=== PATIENT | female | born 2000 | race Caucasian/White ===

== ENCOUNTER → 2022-10-20 | Outpatient (CLI) | payer MEDICAID, OTHER ==
--- NOTE | 2022-10-20 18:51 | Diagnostic Imaging Report ---
INDICATION: Supervision of normal . Anatomy scan. TECHNIQUE: Multiple real-time grayscale images were obtained over the gravid uterus. COMPARISON: None. FINDINGS: A single live intrauterine gestation is visualized in cephalic presentation. The placenta is posterior and not low lying. heart tones measure 143 BPM. The amniotic fluid visually appears normal, although no dedicated measurements were performed by the central office frame wirer. The cervix is closed and measures 4.3 cm in length. The kidneys, urinary bladder, stomach, brain, four-chamber heart, three-vessel cord, spine, and cord insertion are visualized and have a normal appearance. Views of the adnexa are unremarkable. Biometrical measurements are as follows: Biparietal 4.46 cm, age 19 weeks 4 days. Head circumference 16.67 cm, age 19 weeks 3 days. Abdominal circumference 14.15 cm, age 19 weeks 4 days. Femur length 3.05 cm, age 19 weeks 4 days. Sonographic estimate age: 19 weeks 4 days. Sonographic estimated date of delivery: 03/12/2023. Estimated Weight: 294 gm (+/- 43 gm). LMP percentile: 25%. heart rate: 143 beats per minute. number: 1 of 1. IMPRESSION: 1. Single live intrauterine gestation measuring 19 weeks 4 days with an estimated due date of 03/12/2023. These are within range of the clinical dates. 2. Unremarkable anatomy scan. No abnormalities are identified. Dictated by: Dictated on workstation # [id number]
== END ==
LOC: RAD 09:50
PROVIDERS: ATTEND Nurse Practitioner Women's Health
DX: Z34.02 Encounter for supervision of normal first pregnancy, second trimester (principal); Z3A.19 19 weeks gestation of pregnancy
CPT/HCPCS: 76805

== ENCOUNTER 2023-03-04 15:38 | Outpatient (CLI) | payer MEDICAID ==
[~2023-03-04] VITALS: Ht 154.9 cm; Wt 77.0 kg
[2023-03-04 15:40] VITALS: BP 107/68
[2023-03-04 16:09] LABS: COLOR,URINE YELLOW
[2023-03-04 16:10] VITALS: BP 108/68
[2023-03-04 16:10] LABS: BILIRUBIN,URINE NEGATIVE (NEGATIVE); CLARITY,URINE CLEAR; GLUCOSE, URINE (UA) NEGATIVE (NEGATIVE); KETONES,URINE NEGATIVE (NEGATIVE); LEUKOCYTE ESTERASE ,URINE NEGATIVE (NEGATIVE); NITRITE,URINE NEGATIVE (NEGATIVE); PH,URINE 7.5 (5-9); PROTEIN,URINE NEGATIVE (NEGATIVE)
[2023-03-04 16:11] LABS: BACTERIA,URINE MODERATE /HPF; SQUAMOUS EPITHELIAL CELL,UR 0-2 /HPF; WBC,URINE 0-2 /HPF
[2023-03-04] MEDS ORDERED: PREN1TAB19 PO (17:47)
--- NOTE | 2023-03-07 08:58 | Physician Query-Final Dx ---
Clinic Account Progress/Dx Physician Query: Please give diagnosis Please include # weeks gestation Date of Service Mar 04, 2023 at 15:38 ANTONIA,MayMar 07, 2023 08:58
== END 2023-03-04 18:18 | disposition home or self-care (01) ==
LOC: WSo 15:38
PROVIDERS: ATTEND Obstetrics & Gynecology
DX: O47.9 False labor, unspecified (principal); Z3A.00 Weeks of gestation of pregnancy not specified
CPT/HCPCS: 81000

== ENCOUNTER 2023-03-09 22:57 | Outpatient (CLI) | payer MEDICAID ==
[~2023-03-09] VITALS: Ht 155 cm; Wt 77.4 kg
[~2023-03-09 22:57] MED LIST: PREN1TAB19 PO
[2023-03-09 23:20] VITALS: BP 113/65
[2023-03-09 23:47] LABS: CLARITY,URINE CLEAR; COLOR,URINE YELLOW; PH,URINE 6.5 (5-9)
[2023-03-09 23:48] LABS: BACTERIA,URINE LARGE /HPF; BILIRUBIN,URINE NEGATIVE (NEGATIVE); GLUCOSE, URINE (UA) NEGATIVE (NEGATIVE); KETONES,URINE NEGATIVE (NEGATIVE); LEUKOCYTE ESTERASE ,URINE NEGATIVE (NEGATIVE); NITRITE,URINE POSITIVE (NEGATIVE); PROTEIN,URINE NEGATIVE (NEGATIVE); SQUAMOUS EPITHELIAL CELL,UR >50 /HPF
[2023-03-10] MEDS ORDERED: CEPH500T PO (00:29)
[2023-03-10 00:48] VITALS: BP 122/70
--- NOTE | 2023-03-10 08:06 | Physician Query-Final Dx ---
ANTONIA,03/10/23 0806: Clinic Account Progress/Dx Physician Query: Please give diagnosis Please include # weeks gestation Date of Service Mar 09, 2023 at 22:57 ADAM RICHARDS DO 03/11/23 0715: Clinic Account Progress/Dx DIAGNOSIS: Diagnosis 22 yo G1 @ 39 weeks Irregular contractions Uncomplicated UTI ANTONIA,MayMar 10, 2023 08:06 ADAM RICHARDS DO Mar 11, 2023 07:15
== END 2023-03-10 00:48 | disposition home or self-care (01) ==
LOC: LDRP 22:57 → WSo 22:57
PROVIDERS: ATTEND Obstetrics & Gynecology
DX: O62.9 Abnormality of forces of labor, unspecified (principal); O23.43 Unspecified infection of urinary tract in pregnancy, third trimester; Z3A.39 39 weeks gestation of pregnancy
CPT/HCPCS: 81000; 87088; G0463; 99213

== ENCOUNTER 2023-03-12 18:19 | Inpatient (IN) | payer MEDICAID ==
[2023-03-12] VITALS (37 sets, daily range): BP systolic 100–172; BP diastolic 50–117
[~2023-03-12] VITALS: Ht 154.9 cm; Wt 77.5 kg
[~2023-03-12 18:19] MED LIST changes: +CEPH500T PO
[2023-03-12 18:52] LABS: BILIRUBIN,URINE NEGATIVE (NEGATIVE); CLARITY,URINE CLEAR; COLOR,URINE YELLOW; GLUCOSE, URINE (UA) NEGATIVE (NEGATIVE); KETONES,URINE NEGATIVE (NEGATIVE); NITRITE,URINE NEGATIVE (NEGATIVE); PROTEIN,URINE NEGATIVE (NEGATIVE)
[2023-03-12 18:53] LABS: BACTERIA,URINE FEW /HPF; LEUKOCYTE ESTERASE ,URINE NEGATIVE (NEGATIVE); WBC,URINE 0-2 /HPF
[2023-03-12] MEDS ORDERED: MINERAL OIL 30 ML UDC TOP PRN (19:15)
[2023-03-12] MEDS ORDERED: LACTATED RINGERS 1,000 ML 500 ML IV PRN (19:15)
[2023-03-12] MEDS ORDERED: LIDOCAINE 2% w/EPI 1:200,000 20 ML VIAL INJ PRN (19:15)
[2023-03-12] MEDS ORDERED: D5 LR 1,000 ML IV SOLN 1,000 ML IV ONE (19:36)
[2023-03-12] MEDS ORDERED: fentaNYL 2 mcg/ml BUPIVA 0.125 100 ML ONE (19:39)
[2023-03-12] MEDS ORDERED: LACTATED RINGERS 1,000 ML 1,000 ML IV ONE (19:45)
[2023-03-12 19:47] LABS: HEMATOCRIT 38 % (35-52); HEMOGLOBIN 12.9 g/dL (11.5-16.0); MEAN CORPUSCULAR HEMOGLOBIN 29 pg (25-34); MEAN CORPUSCULAR HGB CONC 34 g/dL (32-36); MEAN CORPUSCULAR VOLUME 86 fL (80-99); MEAN PLATELET VOLUME 11.4 fL (9.0-12.2); NEUTROPHILS % (AUTO) 69 % (42-75); PLATELET COUNT 162 10^3/uL (130-400); WHITE BLOOD COUNT 12.4 10^3/uL (4.3-11.0)
[2023-03-12 19:48] LABS: BASOPHILS # (AUTO) 0.1 10^3/uL (0.0-0.1); BASOPHILS % (AUTO) 0 % (0-10); EOSINOPHILS # (AUTO) 0.1 10^3/uL (0.0-0.3); EOSINOPHILS % (AUTO) 1 % (0-10); LYMPHOCYTES % (AUTO) 24 % (12-44); MONOCYTES # (AUTO) 0.6 X 10^3 (0.0-1.0); MONOCYTES % (AUTO) 5 % (0-12); NEUTROPHILS # (AUTO) 8.6 X 10^3 (1.8-7.8)
[2023-03-12] MEDS ORDERED: fentaNYL INJECTION 100 MCG/2 ML VIAL ONE (20:14)
[2023-03-12] MEDS ORDERED: LIDOCAINE PF 2% 5 ML VIAL ONE (20:14)
[2023-03-12] MEDS: D5 LR 1,000 ML IV SOLN 1,000 ML IV SCH (20:20)
[2023-03-12] MEDS: CATHETER FLUSH 10 ML SYR IV SCH (21:19)
[2023-03-13] VITALS (43 sets, daily range): BP systolic 99–146; BP diastolic 55–86
[2023-03-13] MEDS ORDERED: OXYTOCIN DRIP PRE-MIX 500 ML IV ONE (02:35)
[2023-03-13] MEDS ORDERED: fentaNYL 2 mcg/ml BUPIVA 0.125 100 ML ONE (03:00)
[2023-03-13] MEDS: D5 LR 1,000 ML IV SOLN 1,000 ML IV SCH (04:01)
--- NOTE | 2023-03-13 05:02 | History & Physical-OB ---
OB - Chief Complaint & HPI Date/Time Date of Admission: Date of Admission: Mar 12, 2023 at 18:45 Date seen by a Provider: Mar 13, 2023 Time Seen by a Provider: 04:45 Chief Complaint/History OB-Reason for Admission/Chief: Onset of Labor Hx : 1 Expected Date of Delivery: Mar 10, 2023 Gestational Age in Weeks: 40 Gestational Age in Days: 2 Admission Nurse Assessment Rev: Yes History of Labs AB+ GBS neg RI Hep B/C neg HIV neg RPR neg Other This 22yo G1 presents to L&D @ 40w3d EGA with c/o CTXs that started earlier today. She denies LOF or VB CTX Q2-3min Allergies and Home Medications Allergies Coded Allergies: No Known Drug Allergies (Unverified , 03/04/23) Patient Home Medication List Home Medication List Reviewed: Yes Cephalexin (Cephalexin) 500 Mg Tablet, 500 MG PO QID Prescribed by: LIEN ELLIOTT on 03/10/23 0042 Last Action: Reviewed Vit/Iron Fumarate/FA ( Vitamins Tablet) 28 Mg Iron-800 Mcg Tablet, 1 EACH PO DAILY, (Reported) Entered as Reported by: ISABEL VICTORIA on 03/04/23 7877 Last Action: Reviewed OB - History Hx of Present Care: Yes Ultrasounds: Normal mid trimester US Obstetrical Complications: None Medical Complications: None Information Induced Hypertension: No Maternal Gestational Diabetes: No Hemorrhage: No Obstetrical History Hx : 1 Risk Variables Obstetrical Risk Variables: Not POA Anemia, Not POA Asthma, Not POA Autoimmune Disease, Not POA Bariatric Surgery, Not POA Bleeding Disorder, Not POA BMI >= 40, Not POA Cardiac Disease, Not POA Economic Housing Instabil, Not POA G astrointestinal Disease, Not POA Gestational Diabetes, Not POA HIV, Not POA Hypertension, Not POA Fpc Anticoagulant U, Not POA Mental Health Disorder, Not POA Multiple , Not POA Neuromuscular Disease, Not POA Obstetrical VTE, Not POA Other Preeclampsia, Not POA Placenta Previa, Not POA Placental Abruption, Not POA Placenta Accreta Spectrum, Not POA Preexisting Diabetes, Not POA , Not POA Previous , Not POA Pulmonary Hypertension, Not POA Renal Disease, Not POA Severe Preeclampsia, Not POA Substance Abuse, Not POA Thyrotoxicosis Patient Past Medical History Depression Social History/Family History Alcohol Use: Denies Use Smoking Cessation: Never smoker 2nd Hand Smoke Exposure: No Immunizations Influenza Vaccine Up-to-Date: Yes; Up-to-Date OB - Admission Exam Physical Exam Vitals: Vital Signs 03/13/23 04:30 Temp 36.4 Pulse 68 Resp 18 B/P (MAP) 111/69 (83) Pulse Ox 98 O2 Delivery Room Air HEENT: NCAT Heart: Rhythm Normal Lungs: Clear Abdomen: Gravid Extremities: Normal Reflexes: Normal Cervical Dilatation: 10cm Effacement: 100% Station: +1 Membranes: Ruptured (AROM Thick meconium) Amniotic Fluid: Thick Meconium Heart Rate: 150's Accelerations: Accelerations Present Decelerations: Variable Decelerations (occasional ) [employer] Variability: Average (6-25) Contractions on Admission: < 5 Minutes Apart Intensity: Moderate Labs Laboratory Tests Test 03/12/23 18:35 03/12/23 18:57 Range/Units Urine Color YELLOW Urine Clarity CLEAR Urine pH 6.0 5-9 Urine Specific [place] 1.020 1.016-1.022 Urine Protein NEGATIVE NEGATIVE Urine Glucose (UA) NEGATIVE NEGATIVE Urine Ketones NEGATIVE NEGATIVE Urine Nitrite NEGATIVE NEGATIVE Urine Bilirubin NEGATIVE NEGATIVE Urine Urobilinogen 0.2 < = 1.0 MG/DL Urine Leukocyte Esterase NEGATIVE NEGATIVE Urine RBC (Auto) NEGATIVE NEGATIVE Urine RBC NONE /HPF Urine WBC 0-2 /HPF Urine Squamous Epithelial Cells 2-5 /HPF Urine Crystals NONE /LPF Urine Bacteria FEW H /HPF Urine Casts NONE /LPF Urine Mucus NEGATIVE /LPF Urine Culture Indicated YES White Blood Count 12.4 H 4.3-11.0 10^3/uL Red Blood Count 4.39 3.80-5.11 10^6/uL Hemoglobin 12.9 11.5-16.0 g/dL Hematocrit 38 35-52 % Mean Corpuscular Volume 86 80-99 fL Mean Corpuscular Hemoglobin 29 25-34 pg Mean Corpuscular Hemoglobin Concent 34 32-36 g/dL Red Cell Distribution Width 13.6 10.0-14.5 % Platelet Count 162 130-400 10^3/uL Mean Platelet Volume 11.4 9.0-12.2 fL Immature Granulocyte % (Auto) 1 % Neutrophils (%) (Auto) 69 42-75 % Lymphocytes (%) (Auto) 24 12-44 % Monocytes (%) (Auto) 5 0-12 % Eosinophils (%) (Auto) 1 0-10 % Basophils (%) (Auto) 0 0-10 % Neutrophils # (Auto) 8.6 H 1.8-7.8 X 10^3 Lymphocytes # (Auto) 3.0 1.0-4.0 X 10^3 Monocytes # (Auto) 0.6 0.0-1.0 X 10^3 Eosinophils # (Auto) 0.1 0.0-0.3 10^3/uL Basophils # (Auto) 0.1 0.0-0.1 10^3/uL Immature Granulocyte # (Auto) 0.1 0.0-0.1 10^3/uL Syphilis Total Antibody Negative Negative OB - Assessment/Plan/Diagnosis Assessment Assessment: active labor Admission Dx IUP @ 40w3d Admit for labor Admission Status: Inpatient Order (span 2 midnights) Reason for Inpatient Admission: IUP @ 40w3d Admit for labor Plan Plan: Expectant Management RACHELLE MERIDA DO Mar 13, 2023 05:02
[2023-03-13] MEDS ORDERED: MEASLES, MUMPS, RUBELLA VACCINE (MMR) SQ ONE (05:45)
[2023-03-13] MEDS ORDERED: WITCH HAZEL(TUCKS) 40 EA JAR TOP PRN (05:45)
[2023-03-13] MEDS ORDERED: OXYTOCIN DRIP PRE-MIX 500 ML IV SCH (05:45)
[2023-03-13] MEDS ORDERED: METHYLERGONOVINE INJ 0.2 MG/ML AMP IM PRN (05:45)
[2023-03-13] MEDS ORDERED: Tetanus/Diphtheria/Pertussis (Acell) ADULT Vaccine 0.5 ML IM ONE (05:45)
[2023-03-13] MEDS ORDERED: DIBUCAINE 1% OINTMENT 28 GM TUBE TOP PRN (05:45)
[2023-03-13] MEDS ORDERED: NALOXONE 0.4 MG/ML 1 ML VIAL IV PRN (05:45)
[2023-03-13] MEDS ORDERED: BENZOCAINE/MENTHOL (DERMOPLAST) 56 ML CAN TP PRN (05:45)
[2023-03-13] MEDS ORDERED: METHYLERGONOVINE INJ 0.2 MG/ML AMP IM ONE ×2 (05:46→13:05)
--- NOTE | 2023-03-13 05:53 | OB Labor & Delivery Record ---
Vag Delivery Note Vag Delivery Note Date of Delivery: 03/13/23 Preoperative Diagnosis: Janis Mendoza 22-year-old G1 at 40 weeks 3 days with active labor Postoperative Diagnosis: Same Attending Surgeon/Physician: Karina Merida DO Resident Physician: [] Assistant [employer]: [] Anesthesia: Epidural Delivery Type: Spontaneous vaginal delivery Findings: [] Liveborn female at 05 23 on 03/13/2023 with Apgars of 9/9 and weight pending Lacerations: None Intact placenta with 3 vessel cord. No nuchal cord, body cord or shoulder dystocia Estimated Blood Loss: 350ml Complications: None Condition: Stable Description of Procedure: Patient was complete and then pushed for approximately 30 minutes delivered the head in a straightaway position. The mouth and nose were bulb suction. The posterior shoulder (left) delivered followed by the anterior shoulder followed by the rest the . The was placed on maternal abdomen and after 60 seconds of delayed cord clamping the cord was then clamped and then cut by the father. The placenta delivered spontaneously intact with three-vessel cord. The cervix, vagina, periurethral and perineal areas were all inspected. There were no lacerations. Uterus was a bit boggy and EBL was at 200 at that time. Methergine 0.2 was given IM x1 in addition to her standard Pitocin bolus. The uterus was firm and started to slow down. The quantitative blood loss was 350 cc. All my counts were correct x2. Cord bloods had been obtained. The mother and tolerated the procedure well and a recovering in the room in stable condition. Gross pathology: Janis Mendoza is a 22-year-old G1, P0 who presented at 40 weeks 2 days EGA with complaint of contractions. She was klaus about every 2 to 3 minutes and initially her cervix was 4 cm and progressed to 5 cm. She was admitted for labor and she continued to progress until she was complete and delivered as previously described. Vitals - Labs Vital Signs - I&O Vital Signs Date Time Temp Pulse Resp B/P (MAP) Pulse Ox O2 Delivery O2 Flow Rate FiO2 03/13/23 04:30 36.4 68 18 111/69 (83) 98 Room Air 03/13/23 04:15 69 18 113/66 (82) 96 Room Air 03/13/23 04:00 77 18 127/65 (85) 99 Room Air 03/13/23 03:45 36.8 81 18 119/83 (95) 97 Room Air 03/13/23 03:30 67 18 112/77 (89) 98 Room Air 03/13/23 03:15 66 18 116/77 (90) 96 Room Air 03/13/23 03:00 70 18 128/78 (95) 97 Room Air 03/13/23 02:55 67 18 121/73 (89) 100 Room Air 03/13/23 02:50 67 18 113/72 (86) 100 Room Air 03/13/23 02:45 62 18 121/76 (91) 100 Room Air 03/13/23 02:40 65 18 122/70 (87) 100 Room Air 03/13/23 02:35 62 18 122/65 (84) 98 Room Air 03/13/23 02:30 36.7 78 97 118/77 (91) 100 Room Air 03/13/23 02:25 86 18 124/86 (99) 98 Room Air 03/13/23 02:20 66 18 116/68 (84) 97 Room Air 03/13/23 02:00 65 18 116/58 (77) 97 Room Air 03/13/23 01:45 36.6 79 97 106/56 (73) 98 Room Air 03/13/23 01:30 80 18 113/55 (74) 98 Room Air 03/13/23 01:25 80 18 128/58 (81) 98 Room Air 03/13/23 01:20 72 18 116/58 (77) 98 Room Air 03/13/23 01:15 70 18 110/62 (78) 98 Room Air 03/13/23 01:10 67 18 115/56 (75) 99 Room Air 03/13/23 01:05 71 18 115/55 (75) 99 Room Air 03/13/23 01:00 73 18 111/62 (78) 99 Room Air 03/13/23 00:45 69 18 103/59 (74) 96 Room Air 03/13/23 00:30 74 18 105/55 (72) 96 Room Air 03/13/23 00:15 75 18 106/66 (79) 97 Room Air 03/13/23 00:00 75 18 110/72 (85) 97 Room Air 03/12/23 23:45 63 18 108/67 (81) 97 Room Air 03/12/23 23:30 75 18 100/59 (73) 97 Room Air 03/12/23 23:25 66 18 111/66 (81) 97 Room Air 03/12/23 23:20 64 18 110/67 (81) 97 Room Air 03/12/23 23:15 65 18 110/57 (74) 98 Room Air 03/12/23 23:10 36.4 66 18 113/55 (74) 99 Room Air 03/12/23 23:00 70 18 108/50 (69) 98 Room Air 03/12/23 22:45 77 18 104/61 (75) 98 Room Air 03/12/23 22:30 77 18 119/62 (81) 100 Room Air 03/12/23 22:15 63 18 105/56 (72) 100 Room Air 03/12/23 22:00 36.0 70 18 105/53 (70) 99 Room Air 03/12/23 21:45 66 18 111/66 (81) 100 Room Air 03/12/23 21:30 67 18 112/56 (74) 99 Room Air 03/12/23 21:15 86 18 116/55 (75) 98 Room Air 03/12/23 21:00 83 18 109/59 (76) 99 Room Air 03/12/23 20:57 69 18 105/61 (76) 97 Room Air 03/12/23 20:54 72 18 103/56 (72) 98 Room Air 03/12/23 20:51 67 18 101/70 (80) 98 Room Air 03/12/23 20:48 71 18 104/63 (77) 97 Room Air 03/12/23 20:45 77 18 109/66 (80) 98 Room Air 03/12/23 20:42 71 18 110/70 (83) 98 Room Air 03/12/23 20:39 73 18 113/73 (86) 98 Room Air 03/12/23 20:36 75 18 112/73 (86) 98 Room Air 03/12/23 20:33 80 18 100/68 (79) 96 Room Air 03/12/23 20:30 73 18 104/76 (85) 98 Room Air 03/12/23 20:28 76 18 100/73 (82) 98 Room Air 03/12/23 20:25 88 18 172/117 (135) 97 Room Air 03/12/23 20:22 75 18 113/68 (83) 97 Room Air 03/12/23 20:19 74 20 119/76 (90) 100 Room Air 03/12/23 20:16 66 20 122/74 (90) 100 Room Air 03/12/23 20:13 82 20 119/75 (90) 99 Room Air 03/12/23 20:10 80 20 125/74 (91) 100 Room Air 03/12/23 20:07 88 20 122/83 (96) 100 Room Air 03/12/23 20:04 71 18 158/98 (118) Room Air 03/12/23 19:35 36.8 65 18 122/65 (84) Room Air 03/12/23 18:38 37.1 84 18 113/72 (86) 98 Room Air 03/12/23 18:37 37.1 74 18 98 Room Air I & O 03/13/23 07:00 Intake Total 2600 ml Balance 2600 ml Labs Laboratory Tests 03/12/23 18:35: Urine Color YELLOW, Urine Clarity CLEAR, Urine pH 6.0, Urine Specific [place] 1.020, Urine Protein NEGATIVE, Urine Glucose (UA) NEGATIVE, Urine Ketones NEGAT JONAS, Urine Nitrite NEGATIVE, Urine Bilirubin NEGATIVE, Urine Urobilinogen 0.2, Urine Leukocyte Esterase NEGATIVE, Urine RBC (Auto) NEGATIVE, Urine RBC NONE, Urine WBC 0-2, Urine Squamous Epithelial Cells 2-5, Urine Crystals NONE, Urine Bacteria FEWH, Urine Casts NONE, Urine Mucus NEGATIVE, Urine Culture Indicated YES 03/12/23 18:57: White Blood Count 12.4H, Red Blood Count 4.39, Hemoglobin 12.9, Hematocrit 38, Mean Corpuscular Volume 86, Mean Corpuscular Hemoglobin 29, Mean Corpuscular Hemoglobin Concent 34, Red Cell Distribution Width 13.6, Platelet Count 162, Mean Platelet Volume 11.4, Immature Granulocyte % (Auto) 1, Neutrophils (%) (Auto) 69, Lymphocytes (%) (Auto) 24, Monocytes (%) (Auto) 5, Eosinophils (%) (Auto) 1, Basophils (%) (Auto) 0, Neutrophils # (Auto) 8.6H, Lymphocytes # (Auto) 3.0, Monocytes # (Auto) 0.6, Eosinophils # (Auto) 0.1, Basophils # (Auto) 0.1, Immature Granulocyte # (Auto) 0.1, Syphilis Total Antibody Negative KARINA MERIDA DO Mar 13, 2023 05:53
[2023-03-13] MEDS ORDERED: CATHETER FLUSH 10 ML SYR IV SCH (06:00)
[2023-03-13] MEDS: IBUPROFEN 800 MG TABLET PO SCH ×2 (06:06→18:34)
[2023-03-13] MEDS: ACETAMINOPHEN 500 MG TABLET PO SCH ×3 (06:06→20:18)
[2023-03-13] MEDS: CATHETER FLUSH 10 ML SYR IV SCH (06:14)
[2023-03-13] MEDS ORDERED: FLU QUADRIvalent (6 months+) 60 mcg/0.5 ml 2023-2024 (FLUARIX) IM ONE (07:15)
[2023-03-13] MEDS ORDERED: ONDANSETRON INJECTION 4 MG/2 ML (SDV) IVP ONE (09:30)
--- NOTE | 2023-03-13 12:37 | Anesthesia-Regional Post-Op ---
Regional Patient Condition Mental Status: Alert, Oriented x3 Circulation: Same as Pre-Op Headache: Absent Sensation: Full Recovery Motor Block: Absent Post Op Complications Complications None Follow Up Care/Instructions Patient Instructions None needed. Anesthesia/Patient Condition Patient is doing well, no complaints, stable vital signs, no apparent adverse anesthesia problems. No complications reported per nursing. LARISA GUTIÉRREZ CRNA Mar 13, 2023 12:37
[2023-03-13] MEDS: DOCUSATE SODIUM 100 MG CAPSULE PO SCH ×2 (14:40→21:06)
[2023-03-13] MEDS: PRENATAL VITAMIN TABLET PO SCH (14:40)
[2023-03-13] MEDS: FERROUS SULFATE 325 MG (IRON) TABLET PO SCH (14:40)
[2023-03-14] MEDS: IBUPROFEN 800 MG TABLET PO SCH ×3 (04:47→17:00)
[2023-03-14] MEDS: ACETAMINOPHEN 500 MG TABLET PO SCH ×4 (04:48→18:31)
[2023-03-14 05:00] VITALS: BP 93/66
[2023-03-14 06:20] LABS: BASOPHILS # (AUTO) 0.1 10^3/uL (0.0-0.1); BASOPHILS % (AUTO) 0 % (0-10); EOSINOPHILS # (AUTO) 0.2 10^3/uL (0.0-0.3); EOSINOPHILS % (AUTO) 1 % (0-10); NEUTROPHILS % (AUTO) 65 % (42-75)
[2023-03-14 06:21] LABS: HEMATOCRIT 31 % (35-52); HEMOGLOBIN 10.6 g/dL (11.5-16.0); LYMPHOCYTES # (AUTO) 3.1 10^3/uL (1.0-4.0); LYMPHOCYTES % (AUTO) 26 % (12-44); MEAN CORPUSCULAR HEMOGLOBIN 30 pg (25-34); MEAN CORPUSCULAR HGB CONC 34 g/dL (32-36); MEAN CORPUSCULAR VOLUME 86 fL (80-99); MEAN PLATELET VOLUME 11.1 fL (9.0-12.2); MONOCYTES # (AUTO) 0.8 10^3/uL (0.0-1.0); MONOCYTES % (AUTO) 7 % (0-12); NEUTROPHILS # (AUTO) 7.8 10^3/uL (1.8-7.8); PLATELET COUNT 136 10^3/uL (130-400); WHITE BLOOD COUNT 11.9 10^3/uL (4.3-11.0)
[2023-03-14 06:38] LABS: SMEAR SCAN COMMENT YES
--- NOTE | 2023-03-14 07:27 | Postpartum Progress Note ---
Note Note Day # 1 Subjective: Patient is without complaints. Ambulating, voiding. Tolerating a regular diet without nausea or vomiting. Normal lochia. Pain is well controlled with oral pain medications. Objective: Physical Exam: General - Alert and oriented, no apparent distress Abdomen - Soft, appropriately tender to palpation, non-distended, fundus firm at umbilicus Extremities - no edema, negative Ronaldo's bilaterally Assessment: PPD 1 NVD PP depression Acute blood loss anemia Plan: Routine care. Encourage breast feeding. Encourage ambulation. Ferrous sulfate supplementation. Plan for discharge tomorrow Vitals - Labs Vital Signs - I&O Vital Signs Date Time Temp Pulse Resp B/P (MAP) Pulse Ox O2 Delivery O2 Flow Rate FiO2 03/14/23 05:00 36.0 77 18 93/66 (75) 97 Room Air 03/13/23 22:00 36.4 72 18 99/59 (72) 97 Room Air 03/13/23 18:35 36.2 64 18 108/74 (85) Room Air 03/13/23 14:35 36.2 56 18 115/57 (76) Room Air 03/13/23 08:40 66 18 121/77 (92) Room Air 03/13/23 08:10 67 18 121/75 (90) Room Air 03/13/23 07:40 66 18 122/75 (91) Room Air I & O 03/14/23 07:00 Intake Total 500 ml Balance 500 ml Labs Laboratory Tests 03/14/23 06:10: White Blood Count 11.9H, Red Blood Count 3.57L, Hemoglobin 10.6L, Hematocrit 31L , Mean Corpuscular Volume 86, Mean Corpuscular Hemoglobin 30, Mean Corpuscular Hemoglobin Concent 34, Red Cell Distribution Width 13.9, Platelet Count 136, Mean Platelet Volume 11.1, Immature Granulocyte % (Auto) 1, Neutrophils (%) (Auto) 65, Lymphocytes (%) (Auto) 26, Monocytes (%) (Auto) 7, Eosinophils (%) (Auto) 1, Basophils (%) (Auto) 0, Neutrophils # (Auto) 7.8, Lymphocytes # (Auto) 3.1, Monocytes # (Auto) 0.8, Eosinophils # (Auto) 0.2, Basophils # (Auto) 0.1, Immature Granulocyte # (Auto) 0.1, Percent Immature Platelet Fraction 6.2, Smear Scan YES Microbiology 03/12/23 Urine Culture - Preliminary, Resulted NO GROWTH ADAM RICHARDS DO Mar 14, 2023 07:27
[2023-03-14] MEDS ORDERED: SERTRALINE 50 MG TABLET PO SCH (09:00)
[2023-03-14] MEDS: DOCUSATE SODIUM 100 MG CAPSULE PO SCH (12:21)
[2023-03-14] MEDS: PRENATAL VITAMIN TABLET PO SCH (12:21)
[2023-03-14] MEDS: FERROUS SULFATE 325 MG (IRON) TABLET PO SCH (12:21)
[2023-03-14 12:24] VITALS: BP 115/72
[2023-03-14] MEDS ORDERED: SERT-413 PO (14:55)
[2023-03-14] MEDS ORDERED: ACET-93 PO (14:55)
[2023-03-14] MEDS ORDERED: DOCU100C37 PO (14:55)
[2023-03-14] MEDS ORDERED: IBUP-1780 PO (14:55)
[2023-03-14] MEDS ORDERED: FERR325T24 PO (14:55)
[2023-03-14] MEDS ORDERED: DIBU30OI TOP (14:55)
[2023-03-14] MEDS ORDERED: BENZ78AE5 TP (14:55)
--- NOTE | 2023-03-14 14:56 | Discharge Inst-Women's Service ---
Discharge Inst-Women's Serv Depart Medication/Instructions New, Converted or Re-Newed RX: Transmitted to Pharmacy Final Diagnosis PPD 1 NVD Problems Reviewed?: Yes Consults/Follow Up Additional Follow Up: Yes Orders/Referrals Dr. Richards in 6 weeks Activity Activity: Activity as Tolerated Driving Instructions: No Driving for 1 Week NO SMOKING: NO SMOKING Nothing Inside Vagina: No Douching, No [place], No Tampons Diet Discharge Diet: No Restrictions Symptoms to Report to : Bleeding Excessive, Pain Increased, Fever Over 101 Degrees F, Vaginal Bleeding Increase, Questions/Concerns For Any Problems or Questions: Contact Your Physician ADAM RICHARDS DO Mar 14, 2023 14:55
[2023-03-14 17:01] VITALS: BP 119/80
== END 2023-03-14 18:58 | disposition home or self-care (01) | DRG 806 ==
LOC: WSo 18:19 → LDRP 18:20 → WSo 18:45 → LDRP 03-13 09:29
PROVIDERS: ADMIT Obstetrics & Gynecology; ATTEND Obstetrics & Gynecology
PROC: 10E0XZZ Delivery of Products of Conception, External Approach (ICD-10-PCS; principal; 2023-03-13)
DX: O48.0 Post-term pregnancy (principal); D62 Acute posthemorrhagic anemia; Z37.0 Single live birth; Z3A.40 40 weeks gestation of pregnancy; O90.81 Anemia of the puerperium; O99.345 Other mental disorders complicating the puerperium; F53.0 Postpartum depression; Z23 Encounter for immunization
CPT/HCPCS: 36415; 81000; 85025; 86780; 86850; 86870; 86900; 86901; 87088; 90686

== ENCOUNTER 2023-03-16 10:53 | Emergency (ER) | payer MEDICAID ==
[~2023-03-16] VITALS: Ht 154.9 cm; Wt 73.0 kg
[~2023-03-16 10:53] MED LIST changes: +ACET-93 PO; +BENZ78AE5 TP; +DIBU30OI TOP; +DOCU100C37 PO; +FERR325T24 PO; +IBUP-1780 PO; +SERT-413 PO
[2023-03-16 11:20] LABS: BASOPHILS % (AUTO) 0 % (0-10); EOSINOPHILS # (AUTO) 0.2 10^3/uL (0.0-0.3); EOSINOPHILS % (AUTO) 3 % (0-10); HEMATOCRIT 33 % (35-52); HEMOGLOBIN 11.2 g/dL (11.5-16.0); LYMPHOCYTES # (AUTO) 1.8 10^3/uL (1.0-4.0); LYMPHOCYTES % (AUTO) 25 % (12-44); MEAN CORPUSCULAR HEMOGLOBIN 29 pg (25-34); MEAN CORPUSCULAR HGB CONC 34 g/dL (32-36); MEAN CORPUSCULAR VOLUME 87 fL (80-99); MEAN PLATELET VOLUME 10.2 fL (9.0-12.2); MONOCYTES # (AUTO) 0.4 10^3/uL (0.0-1.0); MONOCYTES % (AUTO) 5 % (0-12); NEUTROPHILS # (AUTO) 4.7 10^3/uL (1.8-7.8); NEUTROPHILS % (AUTO) 66 % (42-75); PLATELET COUNT 173 10^3/uL (130-400); WHITE BLOOD COUNT 7.2 10^3/uL (4.3-11.0)
--- NOTE | 2023-03-16 11:26 | ED General ---
General Chief Complaint: (<6 weeks) Stated Complaint: NAUSEA | BLURRED VISION | DIFFICULTY BREATHING Nursing Triage Note: PT AMB TO [facility] 10 WITH CC OF SOB, SMITH, N/V, AND FEELING FAINT. PT STATES THAT SYMPTOMS STARTED AT 5AM. PT HAD A VAGINAL 3 DAYS AGO. Source of Information: Patient Exam Limitations: No Limitations (EMILY ZAVALA APRN) History of Present Illness Date Seen by Provider: Mar 16, 2023 Time Seen by Provider: 11:07 Initial Comments 22-year-old 3-day female presents to the ER with reports of shortness of air, blurry vision, nausea, mild headache, feeling she like she is going to pass out when she stands. States the symptoms started this morning at 5 AM. She also reports lower abdominal pain, thinks it is related to her recent delivery. She had a vaginal delivery 3 days ago without complications. She reports no complications during her . Denies preeclampsia or eclampsia. She reports that this morning she has some nasal congestion. Denies fevers, cough, chest pain, vomiting, dysuria, sore throat. Reports some vaginal bleeding, denies vaginal discharge. (EMILY ZAVALA APRN) Allergies and Home Medications Allergies Coded Allergies: No Known Drug Allergies (Unverified , 03/04/23) Patient Home Medication List Home Medication List Reviewed: Yes (EMILY ZAVALA APRN) Acetaminophen (Acetaminophen) 500 Mg Tablet, 1,000 MG PO Q6H Prescribed by: ADAM CARY on 03/14/23 1455 Benzocaine/Menthol (Dermoplast Pain Relieving [place]) 20 %-0.5 % Aerosol, 1 EA TP UD PRN for PAIN- SEE INSTRUCTIONS Prescribed by: ADAM CARY on 03/14/23 1455 Cephalexin (Cephalexin) 500 Mg Tablet, 500 MG PO BID Prescribed by: Emily Veloz on 03/16/23 1402 Dibucaine (Dibucaine) 1 % Oint, 1 GM TOP UD PRN for PAIN- SEE INSTRUCTIONS Prescribed by: ADAM CARY on 03/14/23 1455 Docusate Sodium (Docusate Sodium) 100 Mg Capsule, 100 MG PO BID PRN for CONSTIPATION-1ST LINE Prescribed by: ADAM CARY on 03/14/23 1455 Ferrous Sulfate (Ferosul) 325 Mg (65 Mg Iron) Tablet, 325 MG PO DAILY Prescribed by: ADAM CARY on 03/14/23 1455 Ibuprofen (Ibuprofen) 800 Mg Tablet, 800 MG PO Q8H Prescribed by: ADAM CARY on 03/14/23 145 Vit/Iron Fumarate/FA ( Vitamins Tablet) 28 Mg Iron-800 Mcg Tablet, 1 EACH PO DAILY, (Reported) Entered as Reported by: ISABEL VICTORIA on 03/04/23 1747 Sertraline HCl (Sertraline HCl) 50 Mg Tablet, 50 MG PO DAILY Prescribed by: ADAM CARY on 03/14/23 145 Discontinued Medications Cephalexin (Cephalexin) 500 Mg Tablet, 500 MG PO QID Discontinued Reason: No Longer Taking Prescribed by: LIEN ELLIOTT on 03/10/23 0042 Review of Systems Review of Systems Constitutional: see HPI (EMILY ZAVALA APRN) Past [id number] Hx Patient Social History Tobacco Use?: No Substance use?: No Alcohol Use?: No (EMILY ZAVALA APRN) Past Medical History Surgery/Hospitalization HX: T&A (EMILY ZAVALA APRN) Physical Exam Vital Signs Vital Signs - First Documented 03/16/23 11:02 Temp 36.2 Pulse 83 B/P (MAP) 124/83 (97) Pulse Ox 97 O2 Delivery Room Air (DIAZ BROOKS MD) Vital Signs Capillary Refill : (EMILY ZAVALA APRN) Height, Weight, BMI Height: '" Weight: lbs. oz. kg; 30.00 BMI Method: General Appearance: No Apparent Distress, WD/WN Neck: Normal Inspection, Supple Respiratory: Lungs Clear, Normal Breath Sounds, No Accessory Muscle Use, No Respiratory Distress Cardiovascular: Regular Rate, Rhythm Gastrointestinal: Normal Bowel Sounds, Non Tender, Soft Genital/Rectal: Normal Genital Exam, Normal Vaginal Exam (Vaginal bleeding, no odorous discharge) Extremity: Normal Inspection, Normal Range of Motion, Non Tender, No Pedal Edema Neurologic/Psychiatric: Alert, No Motor/Sensory Deficits Skin: Normal Color, Warm/Dry (EMILY ZAVALA APRN) Progress/Results/Core Measures Suspected Sepsis SIRS Temperature: Pulse: 83 Respiratory Rate: Laboratory Tests 03/16/23 11:13: White Blood Count 7.2 Blood Pressure 124 /83 Mean: 97 Laboratory Tests 03/16/23 11:13: Creatinine 0.67, INR Comment 0.9, Platelet Count 173, Total Bilirubin 0.4 (EMILY ZAVALA APRN) Results/Orders Lab Results Laboratory Tests Test 03/16/23 11:13 03/16/23 11:16 03/16/23 11:39 Range/Units White Blood Count 7.2 4.3-11.0 10^3/uL Red Blood Count 3.82 3.80-5.11 10^6/uL Hemoglobin 11.2 L 11.5-16.0 g/dL Hematocrit 33 L 35-52 % Mean Corpuscular Volume 87 80-99 fL Mean Corpuscular Hemoglobin 29 25-34 pg Mean Corpuscular Hemoglobin Concent 34 32-36 g/dL Red Cell Distribution Width 13.9 10.0-14.5 % Platelet Count 173 130-400 10^3/uL Mean Platelet Volume 10.2 9.0-12.2 fL Immature Granulocyte % (Auto) 1 % Neutrophils (%) (Auto) 66 42-75 % Lymphocytes (%) (Auto) 25 12-44 % Monocytes (%) (Auto) 5 0-12 % Eosinophils (%) (Auto) 3 0-10 % Basophils (%) (Auto) 0 0-10 % Neutrophils # (Auto) 4.7 1.8-7.8 10^3/uL Lymphocytes # (Auto) 1.8 1.0-4.0 10^3/uL Monocytes # (Auto) 0.4 0.0-1.0 10^3/uL Eosinophils # (Auto) 0.2 0.0-0.3 10^3/uL Basophils # (Auto) 0.0 0.0-0.1 10^3/uL Immature Granulocyte # (Auto) 0.1 0.0-0.1 10^3/uL Prothrombin Time 12.8 12.2-14.7 SEC INR Comment 0.9 0.8-1.4 Activated Partial Thromboplast Time 30 24-35 SEC Fibrinogen 531 H 221-496 MG/DL Sodium Level 138 135-145 MMOL/L Potassium Level 3.8 3.6-5.0 MMOL/L Chloride Level 106 98-107 MMOL/L Carbon Dioxide Level 23 21-32 MMOL/L Anion Gap 9 5-14 MMOL/L Blood Urea Nitrogen 10 7-18 MG/DL Creatinine 0.67 0.60-1.30 MG/DL Estimat Glomerular Filtration Rate 127 BUN/Creatinine Ratio 15 Glucose Level 79 70-105 MG/DL Calcium Level 9.0 8.5-10.1 MG/DL Corrected Calcium 9.7 8.5-10.1 MG/DL Total Bilirubin 0.4 0.1-1.0 MG/DL Aspartate Amino Transf (AST/SGOT) 19 5-34 U/L Alanine Aminotransferase (ALT/SGPT) 11 0-55 U/L Alkaline Phosphatase 150 H 40-136 U/L Lactate Dehydrogenase 237 H 125-220 U/L Total Protein 6.3 L 6.4-8.2 GM/DL Albumin 3.1 L 3.2-4.5 GM/DL Influenza Type A (RT-PCR) Not Detected Not Detecte Influenza Type B (RT-PCR) Not Detected Not Detecte SARS-CoV-2 RNA (RT-PCR) Not Detected Not Detecte Urine Color YELLOW Urine Clarity SL CLOUDY Urine pH 7.0 5-9 Urine Specific [place] 1.015 L 1.016-1.022 Urine Protein 2+ H NEGATIVE Urine Glucose (UA) NEGATIVE NEGATIVE Urine Ketones NEGATIVE NEGATIVE Urine Nitrite NEGATIVE NEGATIVE Urine Bilirubin NEGATIVE NEGATIVE Urine Urobilinogen 1.0 < = 1.0 MG/DL Urine Leukocyte Esterase 3+ H NEGATIVE Urine RBC (Auto) 3+ H NEGATIVE Urine RBC 5-10 H /HPF Urine WBC 50-100 H /HPF Urine Squamous Epithelial Cells 10-25 H /HPF Urine Crystals NONE /LPF Urine Bacteria MODERATE H /HPF Urine Casts NONE /LPF Urine Mucus NEGATIVE /LPF Urine Culture Indicated YES (DAIZ BROOKS MD) Vital Signs/I&O 03/16/23 03/16/23 11:02 14:18 Temp 36.2 Pulse 83 64 B/P (MAP) 124/83 (97) 117/78 Pulse Ox 97 O2 Delivery Room Air 03/17/23 00:00 Intake Total 1000 ml Balance 1000 ml (DIAZ BROOKS MD) Vital Signs/I&O Capillary Refill : (EMILY ZAVALA APRN) Blood Pressure Mean: 97 Progress Note : Progress Note Patient seen and evaluated, resting comfortably in bed, no acute distress. Based on exam and symptoms, I am concerned for preeclampsia, COVID, flu, dehydration. Work-up initiated included CBC, CMP, UA, COVID and flu swab. IV fluids and Toradol ordered. 1353 pelvic exam completed, vaginal bleeding, no odorous discharge. Labs reviewed. CBC shows slightly decreased hemoglobin 11.2, slight decrease hematocrit 33, these are improved from labs drawn on 03/14. Platelets are also increased to 173 from 136 on previous labs. CMP grossly normal. Alkaline phosphatase slightly elevated 150. Total protein slightly decreased 6.3, albumin slightly decreased 3.1. LDH slightly elevated 237. Coags normal. Fibrinogen slightly elevated 531. Urinalysis shows 2+ protein, 3+ leukocytes, 3+ RBCs, 50-100 WBCs, 10-25 squamous epithelial cells, moderate bacteria. Will treat for UTI. COVID and flu negative. I called and spoke with Dr. East, TRUCKER on-call, she reviewed patient's labs and is not concerned based on labs and vital signs. Patient's blood pressure has remained normal during visit. No blood pressures greater than 160 systolic. Patient also has improvement in symptoms after IV fluids and Toradol. She agrees that we should treat patient for UTI and she wants patient to schedule a follow-up within the week. Results and plan of care discussed with patient. Patient agrees to discharge plan. Discharge instructions and return precautions provided. (EMILY ZAVALA APRN) Departure Impression Primary Impression: Urinary tract infection Disposition: 01 HOME, SELF-CARE Condition: Stable Departure-Patient Inst. Decision time for Depature: 14:00 (EMILY ZAVALA APRN) Referrals: ADAM CARY DO (PCP/Family) Primary Care Physician Patient Instructions: Urinary Tract Infection, Adult (DC) Add. Discharge Instructions: Complete full course of antibiotic as prescribed. Call Dr. Cary's office to schedule a follow-up appointment within the week. Make sure you are drinking plenty of water. Return for any new, concerning, or worsening symptoms. All discharge instructions reviewed with patient and/or family. Voiced understanding. Scripts Cephalexin (Cephalexin) 500 Mg Tablet 500 MG PO BID for 7 Days, #13 TAB 0 Refills Prov: EMILY ZAVALA APRN 03/16/23 ATTENDING PHYSICIAN NOTE: I was physically present as attending physician in the emergency department stefan triplett the care of this patient, but I was not directly involved in the decision making or delivery of care for this patient. (DIAZ BROOKS MD) EMILY ZAVALA APRN Mar 16, 2023 11:26 DIAZ BROOKS MD Mar 17, 2023 11:39
[2023-03-16] MEDS ORDERED: KETOROLAC INJ 15 MG/ML VIAL IVP ONE (11:30)
[2023-03-16] MEDS ORDERED: NS IV 1000 ML 1,000 ML IV SCH (11:30)
[2023-03-16 11:39] LABS: ALBUMIN 3.1 GM/DL (3.2-4.5)
[2023-03-16 11:40] LABS: POTASSIUM 3.8 MMOL/L (3.6-5.0)
[2023-03-16 11:42] LABS: TOTAL PROTEIN 6.3 GM/DL (6.4-8.2)
[2023-03-16 11:44] LABS: BILIRUBIN,TOTAL 0.4 MG/DL (0.1-1.0)
[2023-03-16 11:46] LABS: CREATININE SERUM 0.67 MG/DL (0.60-1.30)
[2023-03-16 12:00] LABS: CLARITY,URINE SL CLOUDY; COLOR,URINE YELLOW; GLUCOSE, URINE (UA) NEGATIVE (NEGATIVE); KETONES,URINE NEGATIVE (NEGATIVE); PROTEIN,URINE 2+ (NEGATIVE)
[2023-03-16 12:01] LABS: BACTERIA,URINE MODERATE /HPF; BILIRUBIN,URINE NEGATIVE (NEGATIVE); LEUKOCYTE ESTERASE ,URINE 3+ (NEGATIVE); NITRITE,URINE NEGATIVE (NEGATIVE); WBC,URINE 50-100 /HPF
[2023-03-16 12:54] LABS: INR 0.9 (0.8-1.4); PROTHROMBIN TIME PATIENT 12.8 SEC (12.2-14.7)
[2023-03-16] MEDS ORDERED: CEPH500T PO (14:02)
[2023-03-16] MEDS ORDERED: CEPHALEXIN 250 MG CAPSULE PO ONE (14:15)
[2023-03-16 14:18] VITALS: BP 117/78
== END 2023-03-16 14:15 | disposition home or self-care (01) ==
LOC: EDUNIT# 10:53 → ER 10:56
DX: O86.20 Urinary tract infection following delivery, unspecified (principal); N39.0 Urinary tract infection, site not specified
CPT/HCPCS: 36415; 80053; 81000; 83615; 85025; 85384; 85610; 85730; 87077; 87088; 87636; 96361; 96374